=== PATIENT | male | born 1935 | race Caucasian/White ===

== ENCOUNTER 2018-09-02 14:16 | Inpatient (IN) ==
[2018-09-02] MEDS ORDERED: NS 1,000 ML IV ONE (14:46)
--- NOTE | 2018-09-02 15:10 | Diag Imaging Result Doc PS360 ---
CHEST-1 VIEW - 09/02/2018 INDICATION: SOB COMPARISON: 08/08/2018 FINDINGS: There is mild cardiomegaly. Pulmonary vascularity is normal. There is mild opacification of the left lung base likely a small pleural effusion. No significant infiltrates. IMPRESSION: Cardiomegaly. Small left basilar pleural effusion. Electronically signed by Saeid Fonseca 09/02/2018 3:08 PM
[2018-09-02 15:22] LABS: INR 1.06; PROTIME 14.7 Seconds (11.0-16.0)
[2018-09-02 15:23] LABS: BASO# 0.03 X1000 (0.0-0.2); BASO% 0.3 % (0.0-0.8); EOS# 0.05 X1000 (0.0-0.7); EOS% 0.5 % (0.0-10.0); HEMOGLOBIN 8.8 g/dL (14.0-18.0); IMM GRAN# 0.02 X1000 (0.0-0.04); IMM GRAN% 0.2 % (0.0-0.5); LYMPH% 81.1 % (20.5-51.1); MCH 33.3 PG (27-31); MCHC 31.4 g/dL (33-37); MCV 106.1 FL (81-99); MONO# 0.49 X1000 (0.11-0.59); MONO% 4.8 % (1.7-9.3); MPV 9.5 FL (7.4-10.4); NEUT# 1.32 X1000 (1.4-6.5); NEUT% 13.1 % (42.2-75.2); PLT 393 X1000 (130-400); PTT 32.5 Seconds (22.3-41.8); RBC 2.64 XMIL (4.7-6.1); WBC 10.11 X1000 (4.8-10.8)
[2018-09-02 15:36] LABS: AGAP 9; ALB/GLOB RATIO 1.2; ALBUMIN 3.6 g/dL (3.5-5.0); ALKALINE PHOSPHATASE 949 U/L (32-122); BUN 11 mg/dL (8-22); CALCIUM 8.6 mg/dL (8.8-10.2); CHLORIDE 101 mmol/L (98-107); COSMO 277; CREATININE 0.8 mg/dL (0.7-1.2); ESTIMATED GFR > 60; GLUCOSE 139 mg/dL (70-104); GOT 104 U/L (10-34); GPT 107 U/L (10-44); LIPASE 124 U/L (13-60); POTASSIUM 3.9 mmol/L (3.5-5.1); SODIUM 138 mmol/L (136-145); TCO2 28 mmol/L (25-35); TOTAL BILIRUBIN 2.61 mg/dL (0.20-1.00); TOTAL PROTEIN 6.5 g/dL (6.3-8.3)
[2018-09-02 15:43] LABS: EOS 1 % (1-10); LYMPHS 62 % (21-51); MONO 4 % (1-9); SEGS 20 % (42-75)
--- NOTE | 2018-09-02 16:13 | PROVIDER DOCUMENTATION ---
This chart was entered by Shayna Pederson Scribe, acting as scribe for Domingo Barlow MD. HPI-General Adult - General Chief Complaint: Abnormal Lab[s] Stated Complaint: LOW BLOOD COUNT Time Seen by Provider: 09/02/18 14:40 Source: patient, family Allergies/Adverse Reactions: Patient Allergies Allergy/AdvReac Type Severity Reaction Status Date / Time No Known Allergies Allergy Verified 09/02/18 15:11 Home Medications: Home Medication List Medication Instructions Recorded Confirmed Last Taken Type Carvedilol [Coreg] 3.125 mg PO BID tablet 08/09/18 09/02/18 09/02/18 Rx Folic Acid 1 mg PO DAILY tablet 08/09/18 09/02/18 09/02/18 Rx Iron Carbonyl/Ascorbic Acid 1 each PO BID tablet 08/09/18 09/02/18 09/02/18 Rx [Icar-C] Pantoprazole [Protonix] 40 mg PO BID #60 tablet 08/09/18 09/02/18 09/02/18 Rx Furosemide 20 mg PO DAILY 08/30/18 09/02/18 09/02/18 History Insulin Glargine [Basaglar] 15 units SUBQ DAILY 08/30/18 09/02/18 09/02/18 History Multivitamin with Minerals/Lut 1 tab PO DAILY 08/30/18 09/02/18 09/01/18 History [Cerovite Senior Tablet] - History of Present Illness -Gen Adult Nature of Presenting Problems: 83 yom presents to ED stating he saw Dr. Sahu this morning and he sent him over to have a blood transfusion because labs showed anemia. Patient states he had pancreatitis over a month ago and that he is scheduled for gallbladder surgery tomorrow. Patient states he is weak and SOB. Patient denies vomiting, diarrhea, fever, chills. Review of Systems - Adult - REVIEW OF SYSTEMS - ADULT Constitutional: denies: chills, fever Eyes: reports: no symptoms reported Ears, Nose, Mouth & Throat: reports: no symptoms reported Cardiovascular: reports: no symptoms reported Respiratory: reports: shortness of breath Gastrointestinal: reports: no symptoms reported Genitourinary: reports: no symptoms reported Musculoskeletal: reports: no symptoms reported Neurological: reports: no symptoms reported Psychiatric: reports: no symptoms reported Endocrine: reports: no symptoms reported Hematologic/Lymphatic: reports: no symptoms reported Allergic/Immunologic: reports: no symptoms reported All Other Systems: Reviewed and Negative Past History - Adult - PAST MEDICAL HISTORY-ADULT Review of Records: reports: Nursing Assessment Review, Medications Reviewed Major Childhood Illnesses: reports: denies history Cardiovascular: reports: HTN, hyperlipidemia Respiratory: reports: denies history Gastrointestinal: reports: denies history Obstetrical/Gynecological: reports: denies history Genitourinary: reports: denies history Musculoskeletal: reports: denies history Neurological: reports: denies history Psychiatric: reports: denies history Endocrine/Immune: reports: Diabetes Other Conditions: reports: denies history - PRIOR SURGERIES/PROCEDURES Surgical/Procedure History: reports: reviewed, not pertinent, tonsillectomy - IMMUNIZATION STATUS Childhood Immunizations: See Nurse Assessment Flu Vaccine: See Nurse Assessment - FAMILY HISTORY Family History: reviewed, not pertinent - SOCIAL HISTORY Smoking: non-smoker Physical Exam-General - PHYSICAL EXAM-ADULT Initial Vital Signs Reviewed: Yes - CONSTITUTIONAL General Appearance: alert, no apparent distress - EYES Eyes: PERRL/EOMI, pale conjunctivae - NECK Neck: non-tender, full range of motion, supple - RESPIRATORY Respiratory: chest non-tender, lungs clear, normal breath sounds, no respiratory distress. negative: crackles, rales, rhonchi - CARDIOVASCULAR Cardiovascular: normal peripheral pulses, regular rate, rhythm, no JVD, no murmur - GASTROINTESTINAL (ABDOMEN) Abdominal Exam: normal bowel sounds, non tender, soft. negative: rigid, rebound - MUSCULOSKELETAL Extremity: pedal edema - SKIN Integumentary: swelling, other (1 + bilateral pitting edema in lower extremities ) - NEUROLOGIC Neurologic: grossly normal, no motor/sensory deficits - PSYCHIATRIC Psych/Mental Status: normal mood/affect, normal thought content, oriented x 3 Progress - PLAN OF CARE/RESULTS Progress/Plan/Lab Results: Vital Signs - 8 hr 09/02/18 14:35 Temperature 97.6 F Pulse Rate 80 Respiratory Rate 17 Blood Pressure 145/62 O2 Sat by Pulse Oximetry 98 Orders Category Date Time Status CHEST-1 VIEW [RAD] Stat Exams 09/02/18 14:47 Ordered CBC WITH DIFF [HEME] Stat Lab 09/02/18 14:55 Ordered COMPREHENSIVE METABOLIC PANEL [CHEM] Stat Lab 09/02/18 14:55 Ordered LIPASE [CHEM] Stat Lab 09/02/18 14:55 Ordered PROTIME WITH INR [COAG] Stat Lab 09/02/18 14:55 Ordered PTT [COAG] Stat Lab 09/02/18 14:55 Ordered TYPE & SCREEN [BBK] Stat Lab 09/02/18 14:55 Ordered UA NIMS W/REFLEX CULT [URINALYSIS] Stat Lab 09/02/18 14:46 Uncollected 0.9% Sodium Chloride Inj [Ns] 1,000 ml Med 09/02/18 14:46 Active IV 100 mls/hr EKG [EKG] Stat Ther 09/02/18 14:47 Ordered Result Diagrams: 09/02/18 14:45 09/02/18 14:45 - XRAY 1 XRAY: Bilateral XRAY Study: Chest (MPRESSION: Cardiomegaly. Small left basilar pleural effusion. Electronically signed by Saeid Fonseca 09/02/2018 3:08 PM) Impression: Abnormal - CONSULTS/PCP/HOSPITALIST Notification #1 *Consult/PCP/Hospitalist*: talked to Dr. Samuel and he said ok to admit Time Discussed: 16:05 Consult Disposition: Admit #2 Consult: talked with Dr. Schmidt and he said ok to admit Time Discussed: 16:05 Departure - Departure Date of Disposition Decision: 09/02/18 Time of Disposition Decision: 16:06 DIAGNOSIS: Cholelithiasis, Anemia Disposition: ADMITTED INPATIENT 09 Certified Medical Emergency: Emergent Condition: Stable Referrals and Follow-Ups: Geri Sahu MD [Primary Care Provider] - - Critical Care Note This patient required my direct & personal management of CC.: No Attestation - Physician/ LEEANNE Attestation Patient care was provided by Advanced Practice Provider:: No The physician spent face to face time with patient:: Yes Advanced Practice Provider documentation review:: Supervising physician onsite and consulted in the evaluation and care of this patient. The physician did have a face to face encounter with the patient. This chart was documented by the indicated scribe, (Shayna Pederson Scribe) and accurately reflects the services I performed and decisions made by me, Domingo Barlow MD, as attested by the provider's signature.
[2018-09-02 16:18] LABS: URINE SOURCE CLEAN CATCH
[2018-09-02 16:23] LABS: BILIRUBIN URINE NEGATIVE (NEGATIVE); BLOOD URINE NEGATIVE (NEGATIVE); COLOR YELLOW; GLUCOSE URINE NEGATIVE (NEGATIVE); KETONE URINE NEGATIVE (NEGATIVE); LEUKOCYTES URINE NEGATIVE (NEGATIVE); NITRITE URINE NEGATIVE (NEGATIVE); PROTEIN URINE NEGATIVE (NEGATIVE); SP GRAVITY URINE 1.003; TURBIDITY URINE CLEAR (CLEAR); UROBILINOGEN URINE NORMAL (NORMAL)
[2018-09-02 16:24] LABS: UR EPITHELIAL CELLS <10 /HPF (<10); URINE BACTERIA NEGATIVE /HPF; URINE RBC <10 /HPF (<10); URINE WBC <10 /HPF (<10)
--- NOTE | 2018-09-02 16:55 | EKG Report ---
Test Performed on : 09/02/2018 4:47:35 PM Test Reason : ANEMIC Blood Pressure : / mmHG Vent. Rate : 077 BPM Atrial Rate : 077 BPM P-R Int : 144 ms QRS Dur : 100 ms QT Int : 402 ms P-R-T Axes : 004 -47 017 degrees QTc Int : 454 ms Sinus rhythm. with premature ventricular complexes. or fusion complexes Left anterior fascicular block Abnormal ECG When compared with ECG of 30-JUL-2018 00:24, Sinus rhythm. has replaced Atrial fibrillation. Vent. rate has decreased BY 69 BPM Criteria for Septal infarct are no longer present Non-specific change in ST segment in Lateral leads T wave inversion no longer evident in Lateral leads Unconfirmed Result
--- NOTE | 2018-09-02 17:22 | HISTORY AND PHYSICAL ---
Mr. Laboy was admitted I think back on 07/24/2018 and he was discharged on 08/09/2018. He had acute biliary pancreatitis, gallbladder sludge, acute kidney injury, pneumonia, diabetes mellitus, I think they diagnosed Helicobacter pylori and severe protein calorie malnutrition iron deficiency anemia. Had a ileus, stable pericardial effusion, little bit of volume overload, some hypertension and deconditioning. CT of the abdomen back in 07/2012 revealed acute pancreatitis, pericardial effusion, borderline splenomegaly, echocardiogram done on 07/27 revealed ejection fraction 65-70%, small medium size pericardial effusion without tamponade. Abdominal ultrasound 07/29/2018 revealed fatty infiltration the liver, bilateral lower extremity ultrasound performed on 04/30/2018 revealed no evidence of deep or superficial venous thrombosis and he had a maxillofacial CT performed on 08/01/2018 revealed left frontal sinusitis and bilateral chronic osteomyelitis, patient was here in the hospital with abdominal pain and pancreatitis, CT of the abdomen confirmed acute pancreatitis, he developed acute kidney injury. General surgery was consulted. Dr. Suárez had seen him and felt he would eventually need a cholecystectomy but need to get over his pancreatitis. Chest CT showed bilateral pleural effusions possible pneumonia and this seemed to improve, had bronchodilator therapy and broad- spectrum antibiotics and GI was consulted, the patient was noted to have H pylori and started on treatment for that and showed improvement, they put him on some Levaquin let him go home. Follow up with Dr. Sahu he was feeling kind of puny and weak and followup lab his hemoglobin was 8.8 and his hematocrit was 28. Looking back on his blood counts hemoglobin I think when he was discharged was 7.3 and 08/23 is 6.6. He is not having more abdominal pain, his abdomen feels better, he is not eating much, not had any fever so I am going to admit him to give him a transfusion I think 2 units packed red blood cells and get him ready for possible cholecystectomy. PAST MEDICAL HISTORY: Includes prostate cancer, diabetes mellitus type 2 which apparently he has been able to back down on his medication, hyperlipidemia, hypertension, depression. SURGICAL HISTORY: Status post tonsillectomy, he has had open prostatectomy. ALLERGIES: No known drug allergies. SOCIAL HISTORY: Negative for tobacco, alcohol or illicit drugs. FAMILY HISTORY: No history that he reports of coronary artery disease or renal disease. REVIEW OF SYSTEMS: General: He is not eating much, thinks he has lost weight not sure how much but he can only eat a couple bites and he seems to get full, no fever, chills. HEENT: No change in visual or hearing acuity. No neck pain or cervical adenopathy or thyroid issues. Respiratory: No increased work of breathing or dyspnea. Cardiovascular: No chest pain or tachy palpitation. GI,: Abdominal pain has subsided and he is able to eat and his bowels have been moving okay. No gross hematuria, dysuria. Endocrinologic/Hematologic: No significant history. PHYSICAL EXAMINATION: Well developed, well nourished white male pleasant and alert, oriented x3. Temperature 97.6 degrees, pulse 80, respirations 17, blood pressure 145/62. Pupils are equal and round. LUNGS: Clear in all lung chang. CARDIOVASCULAR: Regular rhythm and rate without murmur or S3. ABDOMEN: Seems to have some minimal ascites but really nontender. EXTREMITIES: With trace to 1+ edema ankles to mid rose. Weight 185 pounds, O2 saturation was 98%. LAB: White count 10,110, hematocrit 28, hemoglobin 8.8, platelet count 393,000, sodium 138, potassium 3.9, chloride 101, BUN 9, creatinine 0.8. AST was 104, ALT was 107, alkaline phos 949, lipase 124, pro time 14.7 with INR 1.06, PTT was 22. Urinalysis unremarkable. Chest x-ray showed cardiomegaly, small left basilar pleural effusion. ASSESSMENT AND PLAN: 1. Recent acute pancreatitis which seems to have recovered, suspect gallbladder with gallbladder sludge and will need a cholecystectomy. His blood counts still a little low although they have improved. I am going to give him 2 units of packed red blood cells. General Surgery following trying to preparation to do elective cholecystectomy. 2. Liver enzymes still elevated. This may be fatty liver. This may also be the residual affects of the gallbladder sludge. I will make sure we check a pancreatitis profile, will check T4, TSH, B12 and folate. 3. Suspect some fatty liver steatosis. 4. Diabetes mellitus type 2. Will check pattern sugars, put him on a diabetic diet. His blood sugar is 139, will check a hemoglobin A1c. 5. Has a history of a prostate cancer, aware. 6. Hyperlipidemia aware. 7. History of depression. Note he is status post open prostatectomy. Will consult general surgery. His volume status looks pretty good. Give him 2 units packed red blood cells and go from there. cc: Angel Pruett MD
[2018-09-02] MEDS ORDERED: ZOFRAN IV PRN (18:10)
[2018-09-02] MEDS ORDERED: TYLENOL PO PRN (18:10)
[2018-09-02] MEDS: NS 1,000 ML IV SCH (18:10)
[2018-09-02] MEDS: COREG PO SCH ×2 (19:35→20:57)
[2018-09-02] MEDS: PROTONIX PO SCH ×2 (19:36→20:58)
[2018-09-02] MEDS: ICAR-C PO SCH ×2 (19:36→20:57)
--- NOTE | 2018-09-03 07:00 | EKG Report ---
Test Performed on : 09/03/2018 06:44:01 AM Test Reason : chest pain Blood Pressure : / mmHG Vent. Rate : 082 BPM Atrial Rate : 082 BPM P-R Int : 140 ms QRS Dur : 106 ms QT Int : 392 ms P-R-T Axes : 017 -58 056 degrees QTc Int : 457 ms Normal sinus rhythm. Left anterior fascicular block Abnormal ECG When compared with ECG of 02-SEP-2018 16:47, (Unconfirmed) fusion complexes are no longer present premature ventricular complexes. are no longer present Confirmed by Giovanna TILLEY, Maxx Mc ([id number]) on 09/03/2018 5:55:54 PM
[2018-09-03 08:11] LABS: BASO# 0.02 X1000 (0.0-0.2); BASO% 0.2 % (0.0-0.8); EOS# 0.07 X1000 (0.0-0.7); EOS% 0.8 % (0.0-10.0); HEMATOCRIT 30.3 % (42.0-52.0); HEMOGLOBIN 9.6 g/dL (14.0-18.0); LYMPH# 6.63 X1000 (1.2-3.4); LYMPH% 78.8 % (20.5-51.1); MCH 31.4 PG (27-31); MCHC 31.7 g/dL (33-37); MONO# 0.43 X1000 (0.11-0.59); MONO% 5.1 % (1.7-9.3); MPV 9.6 FL (7.4-10.4); NEUT# 1.26 X1000 (1.4-6.5); NEUT% 15.1 % (42.2-75.2); PLT 348 X1000 (130-400); RBC 3.06 XMIL (4.7-6.1); WBC 8.41 X1000 (4.8-10.8)
[2018-09-03 08:25] LABS: INR 1.05; PROTIME 14.5 Seconds (11.0-16.0)
[2018-09-03 08:26] LABS: PTT 33.8 Seconds (22.3-41.8)
[2018-09-03 08:35] LABS: AGAP 9; ALBUMIN 2.8 g/dL (3.5-5.0); ALKALINE PHOSPHATASE 813 U/L (32-122); BUN 10 mg/dL (8-22); CHLORIDE 103 mmol/L (98-107); CK PROFILE 31 U/L (24-204); COSMO 280; CREATININE 0.8 mg/dL (0.7-1.2); ESTIMATED GFR > 60; GLUCOSE 122 mg/dL (70-104); GOT 104 U/L (10-34); GPT 102 U/L (10-44); MAGNESIUM 1.6 mg/dL (1.5-2.7); POTASSIUM 3.9 mmol/L (3.5-5.1); SODIUM 140 mmol/L (136-145); TCO2 28 mmol/L (25-35); TOTAL BILIRUBIN 3.25 mg/dL (0.20-1.00); TOTAL PROTEIN 5.5 g/dL (6.3-8.3)
[2018-09-03 08:39] LABS: MONO 14 % (1-9); SEGS 26 % (42-75)
[2018-09-03 08:40] LABS: LYMPHS 58 % (21-51)
--- NOTE | 2018-09-03 09:40 | GENERAL SURGERY PROGRESS NOTE ---
DATE: 09/03/2018 SUBJECTIVE: The patient was admitted yesterday after his primary care physician thought he looked weak and lab work showed anemia. He denies any significant worsening abdominal pain, nausea, vomiting or fever. OBJECTIVE: Vital Signs: He is afebrile. Vital signs are stable. General: He is awake, alert and oriented x3 in no acute distress. GI: Soft, nondistended, minimally tender. Cardiovascular: Regular rate and rhythm. Respiratory: Bilateral equal breath sounds. LABORATORY DATA: Lab work was reviewed. Hemoglobin and hematocrit appear stable over the last month from his previous admission until now. His liver function tests have elevated some. ASSESSMENT AND PLAN: This is an 83-year-old male with chronic calculous cholecystitis and history of biliary pancreatitis. He is anemic but appears to be hemodynamically stable. We are planning a laparoscopic cholecystectomy today as previously planned last week. cc: Malcolm Suárez MD
[2018-09-03] MEDS ORDERED: DIPRIVAN 1% ONE (11:51)
[2018-09-03] MEDS ORDERED: FENTANYL ONE (11:51)
[2018-09-03] MEDS ORDERED: SODIUM CHLORIDE 0.9% ONE (12:35)
[2018-09-03] MEDS ORDERED: SENSORCAINE-MPF 0.5%/EPI 1:200,000 ONE (12:35)
[2018-09-03] MEDS ORDERED: LR 1,000 ML ONE (12:36)
[2018-09-03] MEDS ORDERED: NORCURON ONE (12:46)
[2018-09-03] MEDS ORDERED: STERILE WATER INJ. ONE (12:46)
[2018-09-03] MEDS ORDERED: KEFZOL 1 GM/D5W 1 GM/50 ML IVPB IV ONE (13:00)
[2018-09-03] MEDS ORDERED: DECADRON ONE (13:48)
[2018-09-03] MEDS ORDERED: ZOFRAN ONE (13:48)
--- NOTE | 2018-09-03 14:43 | Diag Imaging Result Doc PS360 ---
EXAM: OPERATIVE CHOLANGIOGRAM 09/03/2018 HISTORY: CHOLECYSTECTOMY TECHNIQUE: Intraoperative cholangiogram two views COMMENT: There is beading of the common hepatic duct in the visible portions of the intrahepatic ducts. There is a fairly smooth narrowing of the proximal common bile duct just below the level of the cystic duct. No definite filling defects are demonstrated. IMPRESSION: Apparent extrinsic compression of the common bile duct. Dilatation of the common hepatic and intrahepatic ducts. Electronically signed by Ronald Beltran 09/03/2018 2:40 PM
[2018-09-03] MEDS ORDERED: BUPRENEX IV PRN (14:55)
--- NOTE | 2018-09-03 15:19 | PROGRESS NOTE ---
DATE: 09/03/2018 SUBJECTIVE: The patient is resting comfortably in bed. He is scheduled to undergo surgery today. No acute events noted overnight. OBJECTIVE: Vital Signs: Temperature 97.3, blood pressure 168/74, heart rate 81 , respirations 18, O2 saturation 94% on room air. General: This is a chronically ill-appearing elderly male lying in bed in no acute distress. Heart: S1, S2 normal. Regular rate and rhythm. Lungs clear to auscultation bilaterally. No wheezing. No rales. No rhonchi. Abdomen: Positive bowel sounds. Soft, nontender, nondistended. Extremities: 1+ edema. No cyanosis. No calf tenderness. Neurologic: The patient is alert and oriented x3. LABORATORY DATA: White blood cell count 8.4, hemoglobin 9.6, hematocrit 30, platelets 348,000. INR 1. Sodium 140, potassium 3.9, chloride 103, CO2 of 28. BUN 10, creatinine 0.8, glucose 122. Magnesium 1.6. Total bilirubin 3.2. AST 104, ALT 102. Alkaline phosphatase 813. ASSESSMENT AND PLAN: 1. Biliary sludge with chronic cholecystitis. The patient is scheduled for a laparoscopic cholecystectomy today. 2. Hypertension. Stable. 3. Iron deficiency anemia. Continue with iron supplementation. 4. Diabetes mellitus, type 2. Stable. Will continue with sliding scale insulin. 5. Gastrointestinal prophylaxis. Continue on Protonix. 6. Deep vein thrombosis prophylaxis. Continue with sequential compression devices. cc: Chaparrita Howe MD MTDD
[2018-09-03] MEDS: BASAGLAR SUBQ SCH (17:21)
[2018-09-03] MEDS: HUMULIN R SUBQ SCH ×2 (17:22→20:24)
[2018-09-03] MEDS: PROTONIX PO SCH ×2 (17:22→20:24)
[2018-09-03] MEDS: FOLIC ACID PO SCH (17:23)
[2018-09-03] MEDS: ICAR-C PO SCH ×2 (17:23→20:24)
[2018-09-03] MEDS: CENTRUM SILVER PO SCH (17:24)
[2018-09-03] MEDS: COREG PO SCH ×2 (17:24→20:24)
[2018-09-03] MEDS: NS 1,000 ML IV SCH (20:24)
[2018-09-04] MEDS: NORCO-7.5 PO PRN ×3 (02:58→21:11)
--- NOTE | 2018-09-04 03:12 | OPERATIVE NOTE ---
PROCEDURE DATE: 09/03/2018 PREOPERATIVE DIAGNOSES: 1. Chronic calculous cholecystitis. 2. Biliary pancreatitis. POSTOPERATIVE DIAGNOSIS: Acute cholecystitis. SURGEON: Malcolm Suárez MD. ANESTHESIA: General. ESTIMATED BLOOD LOSS: 20 mL. COMPLICATIONS: None apparent. SPECIMENS: Gallbladder. FINDINGS: The gallbladder was acutely inflamed, thin walled and friable. The cholangiogram revealed a normal-appearing cystic duct and distal common bile duct with flow of contrast into the duodenum. There were no filling defects or stenoses. However, the proximal common hepatic duct and intrahepatic biliary radicles were dilated. I do not think there was any intraluminal lesion, but probably some extraluminal compression secondary to his history of pancreatitis. DESCRIPTION OF PROCEDURE: He was brought to the operating room and placed supine on the table. General anesthesia was induced. He was prepped and draped in the usual sterile fashion. 0.25% Marcaine with epinephrine was used to anesthetize our incision. An 11-mm incision was made above the umbilicus. The fascia was exposed and incised sharply. Entry into the peritoneal cavity was obtained under direct vision with the Optiview device. Pneumoperitoneum was established and the camera was inserted. There was no evidence of injury to underlying structures. He was placed in reverse Trendelenburg in left rotation. Three 5-mm incision ports were placed across the epigastrium and right upper quadrant per usual routine. The dome of the gallbladder was grasped by the assistant federal public defender with a bulldog clamp, it did tear some, I was able to suction out dark bile with sludge-like material in it. I then obtained an angled camera and a fan instrument, the fan instrument was inserted through a new port site created in the right mid abdomen , this was helpful for holding down the pericolic and periduodenal fat and exposing more of the infundibulum of the gallbladder. I was able to use Kittner dissection and the blunt tip of the suction device to continued sweeping the fatty tissue away from the gallbladder. I dissected out the cystic artery as it entered the gallbladder, clipped it proximally and distally and incised it with scissors. I then was able to get around the posterior part of the infundibulum of the gallbladder and then clearly delineated the cystic duct. The gallbladder liver junction was seen, this completed the critical view. A clip was placed on the distal cystic duct. A ductotomy was made proximal to this incision. A 14-gauge Angiocath was passed through the right upper quadrant. The Taut cholangiogram catheter was passed through this into the cystic duct and held in place with a clip. Cholangiogram was performed with findings as noted above. The clip, catheter, and Angiocath were removed. Three clips were placed on the staying-in side of the cystic duct and it was divided distal to these incisions. The gallbladder was then removed from the liver bed using hook cautery obtaining hemostasis along the way. At the conclusion there was no signs of any leakage of bile or bleeding. I placed the gallbladder in an EndoCatch bag. I irrigated thoroughly with saline, suctioned out the old bile and blood. I then brought the gallbladder and bag out through the umbilical port site under direct vision. We deflated the abdomen and removed the ports. The 11- mm port site fascia was closed with a 0 Vicryl [id number] suture. The skin was closed with running 4-0 subcuticular Monocryl and Steri-Strips. There were no apparent complications. He was awakened in stable condition and transferred to the recovery room. cc: Malcolm Suárez MD MTDD
[2018-09-04] MEDS: HUMULIN R SUBQ SCH ×4 (06:28→21:02)
[2018-09-04 08:41] LABS: AGAP 9; ALB/GLOB RATIO 1.2; ALBUMIN 2.6 g/dL (3.5-5.0); ALKALINE PHOSPHATASE 689 U/L (32-122); BUN 12 mg/dL (8-22); CALCIUM 7.6 mg/dL (8.8-10.2); CHLORIDE 101 mmol/L (98-107); COSMO 275; CREATININE 0.8 mg/dL (0.7-1.2); ESTIMATED GFR > 60; GLUCOSE 99 mg/dL (70-104); GOT 85 U/L (10-34); GPT 92 U/L (10-44); POTASSIUM 4.1 mmol/L (3.5-5.1); SODIUM 138 mmol/L (136-145); TCO2 28 mmol/L (25-35); TOTAL BILIRUBIN 1.84 mg/dL (0.20-1.00); TOTAL PROTEIN 4.7 g/dL (6.3-8.3)
--- NOTE | 2018-09-04 09:01 | Diag Imaging Result Doc PS360 ---
EXAM: CHEST-PORTABLE HISTORY: dyspnea TECHNIQUE: Chest single view COMPARISON: 09/02/2017 FINDINGS: Poor inspiratory effort. Small pleural effusions persist. There are infiltrates and atelectasis in the left base. The heart remains mildly prominent. IMPRESSION: No interval improvement. Electronically signed by Bernabe Stewart 09/04/2018 8:59 AM
[2018-09-04] MEDS: LASIX PO SCH (09:09)
[2018-09-04] MEDS: CENTRUM SILVER PO SCH (09:10)
[2018-09-04] MEDS: ICAR-C PO SCH ×2 (09:10→21:01)
[2018-09-04] MEDS: PROTONIX PO SCH ×2 (09:10→21:01)
[2018-09-04] MEDS: FOLIC ACID PO SCH (09:10)
[2018-09-04] MEDS: COREG PO SCH ×2 (09:11→21:01)
[2018-09-04 10:27] LABS: HEMATOCRIT 29.7 % (42.0-52.0); HEMOGLOBIN 9.2 g/dL (14.0-18.0); MCH 31.3 PG (27-31); MPV 10.3 FL (7.4-10.4); RBC 2.94 XMIL (4.7-6.1); RDW 22.9 % (11.5-14.5); WBC 10.05 X1000 (4.8-10.8)
[2018-09-04] MEDS ORDERED: MAGNESIUM SULFATE 2 GM/S.W.I. 2 GM/50 ML IVPB IV ONE (12:28)
[2018-09-04] MEDS: BASAGLAR SUBQ SCH (15:07)
[2018-09-04] MEDS: GLUCOPHAGE PO SCH (18:13)
[2018-09-04] MEDS: NS 1,000 ML IV SCH (18:14)
--- NOTE | 2018-09-05 04:16 | PROGRESS NOTE ---
DATE: 09/04/2018 SUBJECTIVE: The patient is sitting up, eating. He states that he feels a lot better. No acute events noted overnight. OBJECTIVE: Vital Signs: Temperature 97.3 degrees, blood pressure 127/47, heart rate 78, respirations 20, O2 saturation 95% on room air. General: This is an elderly male sitting up in a chair, in no acute distress. Heart: S1, S2 normal. Regular rate and rhythm. Lungs: Clear to auscultation bilaterally. No wheezing. No rales. No rhonchi. Abdomen: Positive bowel sounds. Soft, nontender, nondistended. Extremities: No edema. No cyanosis. Neurologic: The patient is alert and oriented x3. LABORATORIES: White blood cell count 10, hemoglobin 9.2, hematocrit 29, platelets 340,000. Sodium 138, potassium 4.1, chloride 101, CO2 of 28, BUN 12, creatinine 0.8, glucose 179, calcium 7.6, magnesium 1.5. AST 85, ALT 92, alkaline phosphatase 689. ASSESSMENT AND PLAN: 1. Status post laparoscopic cholecystectomy secondary to acute cholecystitis. The patient is doing well. He has tolerated a liquid diet without any difficulty. Further recommendations to follow from the general surgeon. 2. Diabetes mellitus type 2. Stable. We will restart the patient's metformin. 3. Iron deficiency anemia. Continue with iron supplementation. 4. Hypertension. Continue on Coreg. 5. Deep vein thrombosis prophylaxis. Continue with SCDs. 6. Disposition: Continue with physical therapy. The patient can be discharged home once cleared by the general surgeon. cc: Chaparrita Howe MD MTDD
--- NOTE | 2018-09-05 05:24 | GENERAL SURGERY PROGRESS NOTE ---
DATE: 09/04/2018 SUBJECTIVE: The patient is doing okay today. He has been out of bed. He is eating some food. No nausea or vomiting. His pain is improving. OBJECTIVE: Vital signs: He is afebrile. Vital signs are stable. General: He is awake, alert, and oriented x3. No acute distress. GI: Soft, nondistended, minimally tender. Incisions are healing. The right lateral incision does have serosanguineous drainage. LABORATORY: Reviewed and notable for decreased total bilirubin down to 1.8. AST and ALT decreased. Alkaline phosphatase also decreased. ASSESSMENT/PLAN: An 83-year-old male status post laparoscopic cholecystectomy yesterday for acute cholecystitis. He is making improvement. I would anticipate discharge tomorrow. cc: Malcolm Suárez MD
[2018-09-05] MEDS: HUMULIN R SUBQ SCH ×4 (06:38→20:07)
[2018-09-05 07:58] LABS: HEMATOCRIT 34.3 % (42.0-52.0); HEMOGLOBIN 10.7 g/dL (14.0-18.0); MCH 31.4 PG (27-31); MCHC 31.2 g/dL (33-37); MCV 100.6 FL (81-99); MPV 9.1 FL (7.4-10.4); RBC 3.41 XMIL (4.7-6.1); RDW 22.7 % (11.5-14.5); WBC 10.9 X1000 (4.8-10.8)
[2018-09-05 08:09] LABS: AGAP 9; ALB/GLOB RATIO 1.2; ALBUMIN 2.7 g/dL (3.5-5.0); ALKALINE PHOSPHATASE 798 U/L (32-122); BUN 12 mg/dL (8-22); CALCIUM 7.4 mg/dL (8.8-10.2); CHLORIDE 98 mmol/L (98-107); COSMO 274; CREATININE 0.9 mg/dL (0.7-1.2); ESTIMATED GFR > 60; GLUCOSE 108 mg/dL (70-104); GOT 120 U/L (10-34); GPT 115 U/L (10-44); POTASSIUM 4.2 mmol/L (3.5-5.1); SODIUM 137 mmol/L (136-145); TCO2 30 mmol/L (25-35); TOTAL BILIRUBIN 2.97 mg/dL (0.20-1.00)
[2018-09-05] MEDS: CENTRUM SILVER PO SCH (08:34)
[2018-09-05] MEDS: LASIX PO SCH (08:34)
[2018-09-05] MEDS: FOLIC ACID PO SCH (08:34)
[2018-09-05] MEDS: ICAR-C PO SCH ×2 (08:34→20:06)
[2018-09-05] MEDS: PROTONIX PO SCH ×2 (08:34→20:06)
[2018-09-05] MEDS: GLUCOPHAGE PO SCH ×2 (08:34→17:12)
[2018-09-05] MEDS: COREG PO SCH ×2 (08:34→20:06)
[2018-09-05] MEDS ORDERED: INSULIN PEN NEEDLES ONE (08:35)
[2018-09-05] MEDS: BASAGLAR SUBQ SCH (08:35)
[2018-09-05] MEDS: NORCO-7.5 PO PRN ×3 (08:40→20:06)
--- NOTE | 2018-09-05 09:36 | Diag Imaging Result Doc PS360 ---
EXAM: CHEST-2 VIEWS 09/05/2018 HISTORY: pneumonia TECHNIQUE: PA and lateral chest COMMENT: There is a left pleural effusion. There is opacification the retrocardiac left lower lobe. There has been some improvement in the hazy opacities in both lower lung chang since 09/04/2018. IMPRESSION: Improved pulmonary edema. Left lower lobe atelectasis versus pneumonia with pleural effusion. Electronically signed by Ronald Beltran 09/05/2018 9:34 AM
--- NOTE | 2018-09-05 10:20 | Diag Imaging Result Doc PS360 ---
EXAM: US ABDOMEN-COMPLETE 09/05/2018 HISTORY: elevated liver function tests TECHNIQUE: Abdominal ultrasound COMMENT: There is a right pleural effusion. The liver is somewhat poorly demonstrated. There is heterogeneous in echotexture. There is antegrade flow in the portal vein. There is some hyperechogenicity in the gallbladder fossa. The patient has recently undergone cholecystectomy and this may be due to a post operative hematoma. There is no evidence of biliary dilatation the common bile duct measuring 4 mm. The spleen is not enlarged. The kidneys are without evidence of hydronephrosis or mass. There is a small left pleural effusion. Compared to the previous study of 07/29/2018 the postsurgical changes were not present previously. IMPRESSION: Bilateral pleural effusions. Postoperative changes in the gallbladder fossa. Hepatic steatosis. Electronically signed by Ronlad Beltran 09/05/2018 10:17 AM
--- NOTE | 2018-09-05 21:11 | PROGRESS NOTE ---
DATE: 09/05/2018 SUBJECTIVE: The patient is resting comfortably. He has no complaints at this time. OBJECTIVE: Vital Signs: Temperature 97.4, blood pressure 180/78, heart rate 90, respirations 18, O2 sats 95% on room air. General: This is a chronically ill-appearing elderly male sitting in a chair in no acute distress. Heart: S1, S2 normal. Regular rate and rhythm. Lungs: Equal air entry bilaterally. No crackles. No rales. Abdomen: Positive bowel sounds. Soft, nontender, nondistended. Extremities: No edema, no cyanosis. Neurologic: The patient is alert and oriented x 3. LABS: White blood cell count 10, hemoglobin 10, hematocrit 34, platelets 323,000. Sodium 137, potassium 4.2, BUN 12, creatinine 0.9, glucose 108, total bilirubin 2.9, AST 120, ALT 115, alkaline phosphatase 798. ASSESSMENT AND PLAN: 1. Status post laparoscopic cholecystectomy secondary to acute cholecystitis. The patient's LFTs are elevated today. We will consult with GI for further recommendations. The abdominal ultrasound is unremarkable. 2. Diabetes mellitus type 2. Stable. Continue on metformin. 3. Hypertension. Continue on Coreg. 4. Iron deficiency anemia. Continue on iron supplementation. 5. DVT prophylaxis. Continue with SCDs. cc: Chaparrita Howe MD
--- NOTE | 2018-09-06 02:53 | CONSULTATION ---
DATE OF CONSULTATION: 09/05/2018 REFERRING PROVIDER: Chaparrita Howe M.D. PRIMARY CARE PROVIDER: Geri Sahu M.D. PRIMARY SURGEON: Malcolm Suárez M.D. INDICATION FOR CONSULTATION: Elevated liver function tests. HISTORY OF PRESENT ILLNESS: The patient is an 83-year-old white male who was seen last admission. At that time, he was admitted with biliary pancreatitis secondary to gallbladder sludge, acute kidney injury, pneumonia, and poorly controlled diabetes mellitus. He was found to have anemia and nausea with vomiting. Because of his anemia and epigastric pain at the time of admission, a stool antigen was obtained for H. pylori. It was found to be positive. He completed treatment. He was clinically managed with non-endoscopic intervention. He improved clinically and was discharged to home after being admitted from 07/24/2018 to 08/09/2018. He was managed as an outpatient. On 09/02/2018, he was electively admitted for a cholecystectomy. He underwent a successful cholecystectomy on 09/03/2018. His postop course has been remarkable for an enterocutaneous fistula and elevated liver function tests. Because of his elevated liver function tests, I recommended an abdominal ultrasound which was obtained today. It is remarkable for bilateral pleural effusions, fatty liver, and postoperative changes in the gallbladder fossa. There was no evidence of obstruction or biliary ductal dilation. Currently, the patient states that he feels better since surgery. He denies nausea, vomiting, abdominal pain. 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 He reports minimal incisional abdominal pain. We are asked to participate in his care due to the elevated liver function tests. PAST MEDICAL HISTORY: Remarkable for: 1. Prostate cancer. 2. Diabetes mellitus. 3. Hyperlipidemia. 4. Hypertension. 5. Depression. 6. Acute kidney injury. 7. Pneumonia. 8. Obesity. 9. H. pylori infection. 10. Severe protein-calorie malnutrition. 11. Iron deficiency anemia. 12. Pericardial effusion. 13. Splenomegaly. 14. Fatty liver. 15. Sinusitis, left frontal sinus. 16. Chronic osteomyelitis. PAST SURGICAL HISTORY: 1. Tonsillectomy. 2. Prostatectomy. MEDICATION ALLERGIES: None. HOME MEDICATIONS: 1. Coreg. 2. Folic acid. 3. Lasix. 4. Icar-C. 5. Glucophage. 6. Cerovite. 7. Protonix. SOCIAL HISTORY: Negative for alcohol, tobacco, or recreational drug use. He is a recent . He has a supportive family. FAMILY HISTORY: Negative for coronary artery disease, renal disease, and colon cancer. 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 In addition, he reports the expected postoperative abdominal pain. He denies nausea, vomiting , fever, or chills. PHYSICAL EXAMINATION: Vital Signs: His blood pressure is 180/78, respiratory rate of 26, pulse of 90, with a temperature of 97.4 degrees. HEENT: Negative for jaundice. Oropharyngeal mucosal membranes are moist. Pulmonary exam: His lungs are clear to auscultation with normal respiratory effort. Cardiovascular exam: Reveals a regular rate and rhythm with no gallops or rubs. Abdomen: Soft and nondistended. There is minimal incisional tenderness. He has an ostomy bag over his right lateral incision site that is actively draining serosanguineous fluid. Extremities: Negative for cyanosis, clubbing, or edema. Neurologic: He is alert and oriented x3 with the appropriate mood, affect, and memory. OBJECTIVE DATA: Reveals a hemoglobin of 10.7 with hematocrit of 34.3 and a white count of 10.90. He has 323,000 platelets. Sodium is 134, potassium 4.2, chloride 98, CO2 of 30, BUN 12, creatinine 0.9, with a glucose of 108. Calcium is 7.4. Total bilirubin is 2.97 , direct bilirubin is 2.10, AST 120, ALT 115, alkaline phosphatase 798, total protein 5.0, and albumin of 2.7. His abdominal ultrasound shows bilateral pleural effusions, expected postoperative changes in the gallbladder fossa, no evidence of biliary dilation of the common bile duct, normal kidneys, small pleural effusion, and fatty liver. IMPRESSION: 1. Elevated liver function tests. 2. Acute cholecystitis, status post cholecystectomy. 3. Fatty liver. 4. Recent pancreatitis. 5. Iron deficiency anemia, improved. 6. Helicobacter pylori, status post treatment. RECOMMENDATION: 1. Given that the patient had recent surgery and is minimally symptomatic, I recommend clinical monitoring of his liver function tests. I anticipate it is related to medication and should improve. However, if his liver function tests continue to rise, we can consider a more formal evaluation, including hepatitis profile. 2. For overall evaluation, I will check a hepatitis profile and an DENNIS. He historically has had a negative DENNIS. Given that he has fatty liver, it is reasonable to pursue evaluation with these tests. 3. The patient has had recurrent anemia. He may benefit from an EGD as an outpatient, given that he has required a blood transfusion this admission and has had nausea with vomiting as well as epigastric pain in the past. I recommend that we will allow time for him to recover from his surgery in the absence of active bleeding. 4. Additional recommendations to follow based on his clinical course. cc: MD Chaparrita Basurto MD Marlin D. Gill, MD Jason R. Seale, MD [facility] HOSPITALBrandy
[2018-09-06] MEDS: HUMULIN R SUBQ SCH ×4 (05:59→20:21)
[2018-09-06] MEDS: PROTONIX PO SCH ×2 (08:26→20:14)
[2018-09-06] MEDS: GLUCOPHAGE PO SCH ×2 (08:26→17:08)
[2018-09-06] MEDS: CENTRUM SILVER PO SCH (08:26)
[2018-09-06] MEDS: FOLIC ACID PO SCH (08:26)
[2018-09-06] MEDS: COREG PO SCH ×2 (08:26→20:14)
[2018-09-06] MEDS: ICAR-C PO SCH ×2 (08:26→20:14)
[2018-09-06] MEDS: LASIX PO SCH (08:27)
[2018-09-06] MEDS: NORCO-7.5 PO PRN ×2 (08:27→20:18)
[2018-09-06] MEDS: BASAGLAR SUBQ SCH (08:27)
[2018-09-06 08:29] LABS: HEMATOCRIT 33.2 % (42.0-52.0); HEMOGLOBIN 10.6 g/dL (14.0-18.0); MCH 31.5 PG (27-31); MCHC 31.9 g/dL (33-37); MCV 98.8 FL (81-99); MPV 10.1 FL (7.4-10.4); RBC 3.36 XMIL (4.7-6.1); RDW 21.8 % (11.5-14.5); WBC 14.89 X1000 (4.8-10.8)
[2018-09-06 08:42] LABS: AGAP 11; ALB/GLOB RATIO 1.1; ALBUMIN 2.6 g/dL (3.5-5.0); ALKALINE PHOSPHATASE 670 U/L (32-122); BUN 12 mg/dL (8-22); CALCIUM 7.5 mg/dL (8.8-10.2); CHLORIDE 96 mmol/L (98-107); COSMO 269; CREATININE 0.7 mg/dL (0.7-1.2); ESTIMATED GFR > 60; GLUCOSE 117 mg/dL (70-104); GOT 71 U/L (10-34); GPT 92 U/L (10-44); POTASSIUM 3.6 mmol/L (3.5-5.1); SODIUM 134 mmol/L (136-145); TCO2 27 mmol/L (25-35); TOTAL BILIRUBIN 2.55 mg/dL (0.20-1.00); TOTAL PROTEIN 4.9 g/dL (6.3-8.3)
--- NOTE | 2018-09-06 13:53 | GENERAL SURGERY PROGRESS NOTE ---
DATE: 09/06/2018 SUBJECTIVE: The patient is doing okay. No significant pain. No nausea or vomiting. OBJECTIVE: He is afebrile, pulse 99 to 103, respiratory rate 19 to 25, blood pressure 178/80, O2 saturation 94%.General: He is an elderly male in no distress who looks his stated age. CV: Regular rate and rhythm. Respiratory: No work of breathing. GI: Soft, nontender, nondistended. Incision is clean, dry, and intact. Good bowel sounds. LABORATORY: White cell count 14.9, hemoglobin 10.6, hematocrit 33. Electrolytes reviewed and notable for total bilirubin 2.5, AST 71, ALT 92, alkaline phosphatase 670. IMAGING: Abdominal ultrasound yesterday shows some heterogeneous fluid in the gallbladder fossa, likely consistent with a small hematoma. He has bilateral pleural effusions and hepatic steatosis. ASSESSMENT AND PLAN: An 83-year-old male status post laparoscopic cholecystectomy. He is generally improving. His liver function tests have improved symptomatically. He has minimal symptoms. I would recommend continued advancement of diet and ambulation as tolerated. He can be discharged home at this point from my standpoint. cc: Malcolm Suárez MD
--- NOTE | 2018-09-06 16:43 | Diag Imaging Result Doc PS360 ---
EXAM: CHEST-2 VIEWS HISTORY: pneumonia TECHNIQUE: Chest two views COMPARISON: 09/05/2018 FINDINGS: Small left pleural effusion with infiltrates and atelectasis in the left lower lobe remain. No significant change. Mild cardiac prominence. No vascular distention. IMPRESSION: No interval improvement. Electronically signed by Bernabe Stewart 09/06/2018 4:41 PM
[2018-09-06] MEDS: ZYVOX 600 MG/D5W 600 MG/300 ML IVPB IV SCH (18:32)
[2018-09-06] MEDS: MAXIPIME 1 GM in NS 50 ML IV SCH (18:32)
--- NOTE | 2018-09-06 18:42 | PROGRESS NOTE ---
DATE: 09/06/2018 SUBJECTIVE: The patient is resting comfortably in bed. No acute events noted overnight. OBJECTIVE: Vital Signs: Temperature 97.9 degrees, blood pressure 120/50, heart rate 91, respirations 18, and O2 saturations 95% on room air. General: This is an elderly male, sitting at the edge of the bed in no acute distress. Heart: S1, S2 normal. Regular rate and rhythm. Lungs: Equal air entry bilaterally. No crackles. No rales. Abdomen: Positive bowel sounds. Soft, nontender, nondistended. Extremities: No edema no cyanosis. Neurologic: The patient is alert and oriented x3. LABORATORY DATA: White blood cell count 14, hemoglobin 10, hematocrit 33, platelets 323,000. Sodium 134, potassium 3.6, chloride 96, CO2 of 27, BUN 12, creatinine 0.7, glucose 117, calcium 7.5, total bilirubin 2.5, AST 71, ALT 92, alkaline phosphatase 670, albumin 2.6. Chest x-ray shows a small left pleural effusion with infiltrates and atelectasis in the left lower lung. ASSESSMENT AND PLAN: 1. Status post laparoscopic cholecystectomy. Management as per the general surgeon. 2. Possible pneumonia. The patient's white blood cell count has increased to 14,000, and the chest x-ray is showing infiltrates in the left lower lobe. We will order blood cultures and a sputum Gram stain and culture. We will also start the patient on broad-spectrum antibiotics. 3. Diabetes mellitus type 2. Continue on metformin. 4. Hypertension. Continue on Coreg. 5. Iron deficiency anemia. Continue on iron supplementation. 6. Elevated liver function tests. Slowly improving. Gastrointestinal is following. 7. Deep vein thrombosis prophylaxis will start the patient on Lovenox. cc: Chaparrita Howe MD
[2018-09-06] MEDS: LOVENOX SUBQ SCH (20:14)
--- NOTE | 2018-09-06 20:30 | PROGRESS NOTE ---
DATE: 09/06/2018 SUBJECTIVE: The patient is resting comfortably in bed. He denies complaints. He is worried about his drainage from his right enterocutaneous fistula at the site of his port on the right lateral abdomen. His appetite remains poor according to his daughter. However, the patient states that he does not like the way the food is seasoned here. Notably, the patient's white count has increased to 14,000. His chest x-ray shows an infiltrate in the left lower lobe. He has been placed on broad-spectrum antibiotics for possible pneumonia. PHYSICAL EXAM: Vital Signs: His blood pressure is 120/50, pulse of 91, respiration 19 to 25 with a temperature of 97.9 degrees. Abdomen: Soft. He continues to have serosanguineous drainage from the right abdominal port site. OBJECTIVE DATA: Reveals a hemoglobin of 10.6 with hematocrit of 33.2 and a white count of 14.89. He has 323,000 platelets. Sodium is 134, potassium 3.6, chloride 96, CO2 27, BUN 12, creatinine 0.7 with a glucose of 117. Calcium 7.5, total bilirubin 2.55, AST 71, ALT 92, alkaline phosphatase 670, total protein 4.9 and albumin 2.6. RECOMMENDATION: 1. With regard to his liver function tests, they are improving suggesting this was related to medication induced liver inflammation. I would continue supportive care. 2. I have encouraged the patient to speak with Dr. Suárez or Dr. Schmidt this weekend regarding his concerns about his drainage from his port site. 3. I have encouraged the daughter to bring food from home that the patient would prefer to eat as we need to increase his oral intake in an effort to progress towards discharge. cc: Chaparrita Howe MD
--- NOTE | 2018-09-06 22:10 | Diag Imaging Result Doc PS360 ---
EXAM: CT THORAX W/O CONTRAST HISTORY: pneumonia TECHNIQUE: CT chest without contrast COMPARISON: 07/26/2018 FINDINGS: there are [id number] sized bilateral pleural effusions. The one on the right measures 3.7 cm posteriorly and inferiorly in the midline where is the one on the left measures 3.3 cm. There is a moderate-sized pericardial effusion measuring 1.4 cm anteriorly. The heart is not enlarged. No thoracic aortic aneurysm. Moderate atherosclerosis. Calcified mediastinal and hilar lymph nodes with scattered granuloma. Atelectasis and infiltrates are found in the lower lobes, left greater than right. IMPRESSION: 1.Bilateral pleural effusions with basilar atelectasis and lower lobe infiltrates slightly more pronounced than on the prior study 2.Persistent moderate-sized pericardial effusion This exam was performed using automated exposure control, adjustment of mA or kV according to patient size, and/or use of iterative reconstruction technique. Electronically signed by Bernabe Stewart 09/06/2018 10:07 PM
[2018-09-07] MEDS: HUMULIN R SUBQ SCH ×4 (05:59→20:49)
[2018-09-07] MEDS: MAXIPIME 1 GM in NS 50 ML IV SCH ×2 (06:21→18:10)
[2018-09-07] MEDS: ZYVOX 600 MG/D5W 600 MG/300 ML IVPB IV SCH ×2 (06:21→20:48)
[2018-09-07 07:47] LABS: HEMATOCRIT 30.8 % (42.0-52.0); HEMOGLOBIN 9.9 g/dL (14.0-18.0); MCH 31.8 PG (27-31); MCHC 32.1 g/dL (33-37); MPV 9.4 FL (7.4-10.4); RBC 3.11 XMIL (4.7-6.1); RDW 21.6 % (11.5-14.5); WBC 10.19 X1000 (4.8-10.8)
[2018-09-07] MEDS: COREG PO SCH ×2 (08:06→20:49)
[2018-09-07] MEDS: CENTRUM SILVER PO SCH (08:06)
[2018-09-07] MEDS: FOLIC ACID PO SCH (08:06)
[2018-09-07] MEDS: GLUCOPHAGE PO SCH ×2 (08:06→18:10)
[2018-09-07] MEDS: ICAR-C PO SCH ×2 (08:06→20:49)
[2018-09-07] MEDS: LASIX PO SCH (08:06)
[2018-09-07] MEDS: PROTONIX PO SCH ×2 (08:06→20:49)
[2018-09-07 09:37] LABS: AGAP 11; ALBUMIN 2.4 g/dL (3.5-5.0); ALKALINE PHOSPHATASE 526 U/L (32-122); BUN 15 mg/dL (8-22); CALCIUM 7.6 mg/dL (8.8-10.2); CHLORIDE 97 mmol/L (98-107); COSMO 274; CREATININE 0.9 mg/dL (0.7-1.2); ESTIMATED GFR > 60; GLUCOSE 119 mg/dL (70-104); GOT 38 U/L (10-34); GPT 63 U/L (10-44); POTASSIUM 3.4 mmol/L (3.5-5.1); SODIUM 136 mmol/L (136-145); TCO2 28 mmol/L (25-35); TOTAL BILIRUBIN 2.21 mg/dL (0.20-1.00); TOTAL PROTEIN 4.7 g/dL (6.3-8.3)
--- NOTE | 2018-09-07 09:57 | GENERAL SURGERY PROGRESS NOTE ---
DATE: 09/07/2018 SUBJECTIVE: Patient seems to be doing okay. He says he is up and ambulating. Drainage from the left lateral incision has been almost a liter. OBJECTIVE: Vital Signs: Patient is currently afebrile. His vital signs are stable. General: No acute distress. Cardiovascular: Regular rate and rhythm. Lungs: Grossly clear. Abdomen: Soft, appropriately tender. Drainage noted from most lateral trocar site. LABORATORY: Reviewed from yesterday. CT scan reviewed from yesterday. ASSESSMENT AND PLAN: An 83-year-old status post laparoscopic cholecystectomy. Postoperative state: At this time, continue current treatment. He is draining from lateral trocar site. If this persists at this high level may need to consider a HIDA scan to make sure he is not leaking anywhere. This does not look like straight bile though. He may be just decompressing the fluid from his gallbladder fossa. So again, we will just need to monitor for right now and make further recommendations if the fluid drainage persists. cc: John Schmidt MD MTDD
--- NOTE | 2018-09-07 14:05 | PROGRESS NOTE ---
DATE: 09/07/2018 SUBJECTIVE: The patient is resting comfortably. He has no complaints. OBJECTIVE: Vital Signs: Temperature 97, blood pressure 157/64, heart rate 86, respirations 20, O2 saturation 95% on room air. General: This is a chronically ill-appearing, elderly male, lying in bed in no acute distress. Heart: S1, S2 normal. Regular rate and rhythm. Lungs: Equal air entry bilaterally. No crackles. No rales. Abdomen: Positive bowel sounds. Soft. There is an ostomy on the right lower quadrant that has serous fluid in it. Extremities: No edema. No cyanosis. Neurologic: The patient is alert and oriented x3. LABS: White blood cell count 10, hemoglobin 9.9, hematocrit 30, platelets 281. Sodium 136, potassium 3.4, chloride 97, CO2 of 28, BUN 15, creatinine 0.9, glucose 119. AST 30, ALT 63, alkaline phosphatase 526, albumin 2.4. ASSESSMENT AND PLAN: 1. Status post laparoscopic cholecystectomy. The patient continues to have drainage from the surgical site. Management as per the general surgeon. 2. Pneumonia. Continue with antibiotic therapy and bronchodilator therapy. Will also add incentive spirometer. 3. Diabetes mellitus type 2. Continue on metformin. 4. Iron deficiency anemia. Continue iron supplementation. 5. Hypertension. Continue on Coreg. 6. Elevated liver function tests. Improved. 7. Severe protein calorie malnutrition. Will add Glucerna with each meal. 8. Continue with physical therapy. DISPOSITION: If the patient continues to improve, we will transition to oral antibiotics on Sunday and let the patient go home. cc: Chaparrita Howe MD
[2018-09-07 14:25] LABS: HEPATITIS PROFILE ACUTE SEE COMMENTS
[2018-09-07] MEDS: MEGACE LIQUID PO SCH ×2 (15:10→20:48)
[2018-09-07] MEDS: LOVENOX SUBQ SCH (20:49)
[2018-09-07] MEDS: NORCO-7.5 PO PRN (20:49)
[2018-09-08] MEDS: HUMULIN R SUBQ SCH ×4 (05:59→20:00)
[2018-09-08] MEDS: MAXIPIME 1 GM in NS 50 ML IV SCH ×2 (06:00→18:27)
--- NOTE | 2018-09-08 07:40 | GENERAL SURGERY PROGRESS NOTE ---
DATE: 09/08/2018 SUBJECTIVE: The patient is doing okay but he has had at least a liter or so out from the most lateral trocar site. It does not look like rama bile at this point. OBJECTIVE: Vital Signs: The patient is currently afebrile. His vital signs are stable. General Examination: No acute distress. Cardiovascular: Regular rate and rhythm. Lungs: Grossly clear. Abdomen: Soft, nontender in the right upper quadrant. Drainage noted from the most lateral trocar site. Laboratory: Reviewed from previous days. ASSESSMENT AND PLAN: An 83-year-old status post laparoscopic cholecystectomy. Postoperative state. At this time, given the continued drainage, we will get a CT scan. If there is fluid around the gallbladder fossa, may consider HIDA scan but, at this time, we will need to see all possible sources of drainage from this. We will get it with intravenous contrast. cc: John Schmidt MD
[2018-09-08 07:50] LABS: BASO# 0.01 X1000 (0.0-0.2); BASO% 0.1 % (0.0-0.8); EOS# 0.09 X1000 (0.0-0.7); HEMATOCRIT 30.5 % (42.0-52.0); HEMOGLOBIN 9.6 g/dL (14.0-18.0); IMM GRAN# 0.02 X1000 (0.0-0.04); IMM GRAN% 0.2 % (0.0-0.5); LYMPH# 6.67 X1000 (1.2-3.4); LYMPH% 77.1 % (20.5-51.1); MCH 31.1 PG (27-31); MCHC 31.5 g/dL (33-37); MCV 98.7 FL (81-99); MONO# 0.49 X1000 (0.11-0.59); MONO% 5.7 % (1.7-9.3); MPV 9.4 FL (7.4-10.4); NEUT# 1.37 X1000 (1.4-6.5); NEUT% 15.9 % (42.2-75.2); PLT 315 X1000 (130-400); RBC 3.09 XMIL (4.7-6.1); RDW 20.8 % (11.5-14.5); WBC 8.65 X1000 (4.8-10.8)
[2018-09-08 08:13] LABS: AGAP 8; BUN 13 mg/dL (8-22); CALCIUM 7.1 mg/dL (8.8-10.2); CHLORIDE 98 mmol/L (98-107); COSMO 273; CREATININE 0.8 mg/dL (0.7-1.2); ESTIMATED GFR > 60; GLUCOSE 110 mg/dL (70-104); POTASSIUM 3.4 mmol/L (3.5-5.1); SODIUM 136 mmol/L (136-145); TCO2 30 mmol/L (25-35)
[2018-09-08 08:17] LABS: ALB/GLOB RATIO 1.2; ALBUMIN 2.4 g/dL (3.5-5.0); DIRECT BILIRUBIN 1.2 mg/dL (0.00-0.20); TOTAL BILIRUBIN 1.88 mg/dL (0.20-1.00); TOTAL PROTEIN 4.4 g/dL (6.3-8.3)
--- NOTE | 2018-09-08 08:48 | Diag Imaging Result Doc PS360 ---
EXAM: CT ABD/PELVIS W/IV CONT ONLY - 09/08/2018 HISTORY: drainage from incision s/p cholecystectomy TECHNIQUE: CT abdomen/pelvis with intravenous contrast. No oral contrast administered per request of the referring provider. COMPARISON: 07/27/2018 CT abdomen/pelvis without contrast FINDINGS: There are pleural effusions and atelectasis at the bilateral lung bases, most prominent on the left. There is a small pericardial effusion. There are postsurgical changes of recent cholecystectomy. There is no discrete abscess or hematoma identified at the cholecystectomy site. There is minimal free fluid. There has been interval development of necrosis of much of the pancreas, with associated generalized enlargement of the pancreas. This is compatible with progressive changes from pancreatitis. There are no other acute changes of the liver, spleen (other than possible mild interval enlargement), adrenal glands, or kidneys identified. There is no evidence of bowel obstruction. The appendix is mildly prominent compared to prior, with fluid in the lumen and mildly thickened hope. It is possible that this may represent reaction from a small amount surrounding free fluid, which may relate to the pancreatitis. The possibility of acute appendicitis cannot be excluded, however. IMPRESSION: Status post interval cholecystectomy. No evidence of abscess or hematoma at the cholecystectomy site. Minimal free fluid. Development of necrosis and associated enlargement of much of the pancreas, compatible with progressive changes of pancreatitis. Questionable acute appendicitis. Correlation with clinical evaluation is recommended. This exam was performed using automated exposure control, adjustment of mA or kV according to patient size, and/or use of iterative reconstruction technique. Electronically signed by Chong Lucero 09/08/2018 8:46 AM
--- NOTE | 2018-09-08 09:10 | ECHO REPORT ---
ORDER DATE: 09/07/2018 INTERPRETING PHYSICIAN: Dr. Hassan REQUESTING PHYSICIAN: CLINICAL INDICATIONS: This is an 83-year-old male with pericardial effusion. This is a limited study to reassess the effusion. M-MODE MEASUREMENTS: Right ventricle: cm. Left ventricle end diastole: 3.4 cm. Left ventricle end systole: 2.7 cm. Posterior wall: 1.3 cm. Interventricular septum: 1.5 cm. Left atrium: cm. Aortic root: cm. SUMMARY OF 2-DIMENSIONAL IMAGIN. There is a small to medium size pericardial effusion. It does not appear to cause any hemodynamic compromise. 2. The left ventricle shows normal function. Ejection fraction is 65%. 3. The aortic valve looks normal. Color flow mapping is unremarkable. 4. Mitral valve looks normal. 5. Pulmonic valve looks grossly normal. 6. The right ventricle shows normal function. 7. There is no evidence of compression of neither right ventricle nor right atrium. 8. There is a prominent left pleural effusion. Clinical correlation is recommended. cc: MD Chaparrita Begum MD
[2018-09-08] MEDS: MEGACE LIQUID PO SCH ×2 (11:38→19:59)
[2018-09-08] MEDS: ICAR-C PO SCH ×2 (11:38→20:01)
[2018-09-08] MEDS: FOLIC ACID PO SCH (11:39)
[2018-09-08] MEDS: LASIX PO SCH (11:39)
[2018-09-08] MEDS: GLUCOPHAGE PO SCH (11:39)
[2018-09-08] MEDS: COREG PO SCH ×2 (11:39→19:59)
[2018-09-08] MEDS: PROTONIX PO SCH ×2 (11:39→19:59)
[2018-09-08] MEDS: CENTRUM SILVER PO SCH (11:39)
[2018-09-08] MEDS: ZYVOX 600 MG/D5W 600 MG/300 ML IVPB IV SCH ×2 (11:40→19:58)
[2018-09-08] MEDS ORDERED: KLOR-CON PO ONE ×2 (12:02→18:20)
--- NOTE | 2018-09-08 12:49 | PROGRESS NOTE ---
DATE: 09/08/2018 SUBJECTIVE: The patient is sitting up in the chair. He states that he worked with physical therapy this morning. He is tolerating his diet without any difficulty. OBJECTIVE: Vital Signs: Temperature 97.2 degrees, blood pressure 148/52, heart rate 89, respirations 20, O2 saturation 96% on 2 L nasal cannula. General: This is an elderly male sitting in a chair in no acute distress. Heart: S1, S2. Normal. Lungs: Clear to auscultation bilaterally. No wheezing. No rales. Abdomen: Positive bowel sounds. Soft, nontender, nondistended. Extremities: No edema. No cyanosis. Neurologic: The patient is alert and oriented x3. LABORATORIES: White blood cell count 8.6, hemoglobin 9.6, hematocrit 30, platelets 315,000. Sodium 136, potassium 3.4, chloride 98, CO2 30, BUN 13, creatinine 0.8. ASSESSMENT AND PLAN: 1. Status post laparoscopic cholecystectomy. The patient continues to have increased drainage from the surgical site. We will await further recommendations from General Surgery. 2. Pneumonia. Continue with antibiotic therapy. 3. Pancreatitis. Aware. 4. Diabetes mellitus type 2. Continue on sliding scale insulin. 5. Hypertension. Continue on Coreg. 6. Elevated liver function tests. Improved. 7. Severe protein calorie malnutrition. Continue with meal supplementation and Megace. 8. Continue with physical therapy. cc: Chaparrita Howe MD MTDD
[2018-09-08] MEDS: NORCO-7.5 PO PRN (14:20)
[2018-09-08 16:09] LABS: AMYLASE BODY FLUID 95 U/L
[2018-09-08] MEDS: LOVENOX SUBQ SCH (19:58)
--- NOTE | 2018-09-08 20:17 | PROGRESS NOTE ---
DATE: 09/08/2018 DATE OF ROUNDS: 09/08/2018. SUBJECTIVE: The patient states that he feels better today. He reports less abdominal pain. He continues to have right lower quadrant tenderness. The enterocutaneous fistula at the right abdominal port site continues to drain. Because of the persistent drainage, he underwent a CT scan today that reveals severe pancreatic necrosis, and possible acute appendicitis. Severe necrotizing pancreatitis was with progression of the pancreatitis compared to the previous CT. In addition, his appendix is filled with fluid and has moderately thickened hope. They could not rule out the possibility of acute appendicitis. PHYSICAL EXAMINATION: Vital Signs: His blood pressure is 139/58, pulse of 82, respirations 20, temperature of 97.4. Abdomen: On his abdominal exam, he has normoactive bowel sounds. The abdomen is soft with epigastric and right lower quadrant tenderness. There is no rebound or guarding. OBJECTIVE DATA: Reveals a hemoglobin of 9.6 with hematocrit of 30.5 and a white count of 8.65. He has 315,000 platelets. His sodium is 136, potassium 3.4, chloride 98, CO2 of 30, BUN 13, creatinine 0.8 with a glucose of 110. Calcium is 7.1, total bilirubin 1.88, direct bilirubin 1.20, AST 28, ALT 50, alkaline phosphatase 480, total protein 4.4, albumin 2.4 and lipase 73. IMPRESSION: 1. Acute necrotizing pancreatitis. 2. Elevated liver function test. 3. Enterocutaneous fistula. 4. Possible acute appendicitis. RECOMMENDATIONS: 1. With regard to the persistent drainage from the right abdominal port post cholecystectomy, I recommend that this fluid be checked for amylase and white blood cell. The fluid should also be cultured. If this is a sterile necrotizing pancreatitis, I would continue clinical monitoring. If he has evidence of infection, we will need to readdress his antibiotic therapy as well as his need for potential surgical debridement. At this time, though , he is not septic and does not appear to have an indication for acute surgical intervention. 2. His liver function tests are improving, albeit slowly. I recommend continued watchful waiting. 3. Given that the patient also has pneumonia, I would continue his current antibiotics. 4. I would continue Protonix 40 mg p.o. b.i.d. 5. Additional recommendations will be based on the results of his fluid analysis and culture. cc: MD Geri Basurto MD Katherine Takundwa, MD [facility]PITALBrandy
[2018-09-08 20:38] LABS: BODY FLUID SOURCE JP DRAIN FLUID; WBC BF 281 /cumm
[2018-09-08 20:41] LABS: MONOS 80 %; POLYS 20 %
[2018-09-09] MEDS: MAXIPIME 1 GM in NS 50 ML IV SCH (05:32)
[2018-09-09] MEDS: HUMULIN R SUBQ SCH ×4 (06:16→22:45)
[2018-09-09 07:48] LABS: AGAP 7; ALBUMIN 2.5 g/dL (3.5-5.0); ALKALINE PHOSPHATASE 460 U/L (32-122); BASO# 0.02 X1000 (0.0-0.2); BASO% 0.2 % (0.0-0.8); BUN 13 mg/dL (8-22); CALCIUM 7.9 mg/dL (8.8-10.2); CHLORIDE 101 mmol/L (98-107); COSMO 277; CREATININE 0.9 mg/dL (0.7-1.2); EOS# 0.07 X1000 (0.0-0.7); EOS% 0.7 % (0.0-10.0); ESTIMATED GFR > 60; GLUCOSE 121 mg/dL (70-104); GOT 42 U/L (10-34); GPT 48 U/L (10-44); HEMATOCRIT 31.3 % (42.0-52.0); HEMOGLOBIN 10.1 g/dL (14.0-18.0); LYMPH# 8.02 X1000 (1.2-3.4); LYMPH% 82.9 % (20.5-51.1); MAGNESIUM 1.5 mg/dL (1.5-2.7); MCH 31.9 PG (27-31); MCHC 32.3 g/dL (33-37); MCV 98.7 FL (81-99); MONO# 0.51 X1000 (0.11-0.59); MONO% 5.3 % (1.7-9.3); MPV 9.7 FL (7.4-10.4); NEUT# 1.05 X1000 (1.4-6.5); NEUT% 10.9 % (42.2-75.2); PLT 360 X1000 (130-400); POTASSIUM 4.5 mmol/L (3.5-5.1); RBC 3.17 XMIL (4.7-6.1); RDW 21.1 % (11.5-14.5); SODIUM 138 mmol/L (136-145); TCO2 30 mmol/L (25-35); TOTAL BILIRUBIN 1.54 mg/dL (0.20-1.00); TOTAL PROTEIN 5.1 g/dL (6.3-8.3); WBC 9.67 X1000 (4.8-10.8)
[2018-09-09] MEDS ORDERED: MAGNESIUM SULFATE 2 GM/S.W.I. 2 GM/50 ML IVPB IV ONE (07:54)
[2018-09-09] MEDS: ZYVOX 600 MG/D5W 600 MG/300 ML IVPB IV SCH ×2 (09:37→22:39)
[2018-09-09] MEDS: LASIX PO SCH (09:37)
[2018-09-09] MEDS: PROTONIX PO SCH ×2 (09:37→22:40)
[2018-09-09] MEDS: CENTRUM SILVER PO SCH (09:37)
[2018-09-09] MEDS: MEGACE LIQUID PO SCH ×2 (09:37→22:39)
[2018-09-09] MEDS: COREG PO SCH ×2 (09:37→22:40)
[2018-09-09] MEDS: ICAR-C PO SCH ×2 (09:37→22:40)
[2018-09-09] MEDS: FOLIC ACID PO SCH (09:38)
[2018-09-09] MEDS ORDERED: NS 0 ML ONE (10:50)
--- NOTE | 2018-09-09 12:21 | PROGRESS NOTE ---
DATE: 09/09/2018 SUBJECTIVE: The patient is resting comfortably in bed. He has no complaints at this time. He still has drainage from his surgical site. He has been up to walk with physical therapy today. He denies having any nausea. OBJECTIVE: Vital Signs: Temperature 97 degrees, blood pressure 135/62, heart rate 87, respirations 22, and O2 saturations 97% on 2 L nasal cannula. General: This is a chronically ill- appearing elderly male lying in bed in no acute distress. Heart: S1, S2 normal. Regular rate and rhythm. Lungs: Equal air entry bilaterally. No crackles. No rales. Abdomen: Positive bowel sounds. Soft. There is an ostomy pouch on the right upper quadrant with brown drainage. Extremities: No edema no cyanosis. Neurologic: The patient is alert and oriented x3. LABORATORY: White blood cell count 9.6, hemoglobin 10, hematocrit 31, and platelets 360,000. Sodium 138, potassium 4.5, chloride 101, CO2 30, BUN 13, creatinine 0.9, glucose 121, magnesium 1.5, total bilirubin 1.5, direct bilirubin 1.1, AST 42, ALT 48, alkaline phosphatase 460, and albumin 2.5. ASSESSMENT AND PLAN: 1. Status post laparoscopic cholecystectomy. Management as per the general surgeon. 2. Necrotizing pancreatitis. Continue with supportive care. Further recommendations to follow from the general surgeon. 3. Post surgical drainage. Will await further recommendations from the general surgeon. 4. Pneumonia. Continue with antibiotic therapy. We will do a chest x-ray tomorrow. 5. Diabetes mellitus type 2. Continue on sliding scale insulin and metformin. Continue on sliding scale insulin. 6. Hypertension. Continue on Coreg. 7. Elevated liver function tests. Continue to monitor for improvement. 8. Severe protein calorie malnutrition. Continue with meal supplementation and Megace. 9. Continue with physical therapy. 10. Disposition. Once the patient is medically stable, he will be discharged home with home health. cc: MD ARIES Bryan
--- NOTE | 2018-09-09 13:57 | GENERAL SURGERY PROGRESS NOTE ---
DATE: 09/09/2018 SUBJECTIVE: The patient denies abdominal pain, nausea, vomiting, fever, or chills. He is eating some food without vomiting. He has had ongoing persistent high-volume drainage from his right lateral abdominal incision. Fluid analysis revealed a normal amylase level. However, they are elevated white blood cells. CT scan shows minimal free fluid. There is a large peripancreatic fluid collection and pancreatic necrosis. There is questionable acute appendicitis. LABORATORY: White blood cell count 9.6, hemoglobin 10, hematocrit 31. Electrolytes notable for improving LFTs. ASSESSMENT AND PLAN: This is an 83-year-old male status post laparoscopic cholecystectomy. He has developed pancreatic necrosis. He has high-volume drainage. We will send some of the drainage for a bilirubin level. It is possible there is a bile leak. I think it is less likely that there is a duodenal fistula given the normal amylase level. Other possibility would be reactive fluid secondary to the pancreatic necrosis. At this point, I do not think he has acute appendicitis, but I will monitor this closely. I will continue the current care. cc: Malcolm Suárez MD
[2018-09-09 14:21] LABS: BODY FLUID SOURCE MISCELLANEOUS
[2018-09-09 14:22] LABS: MONOS 81 %; POLYS 19 %; WBC BF 259 /cumm
[2018-09-09] MEDS: LOVENOX SUBQ SCH (22:41)
[2018-09-10] MEDS: MAXIPIME 1 GM in NS 50 ML IV SCH ×2 (01:35→18:56)
--- NOTE | 2018-09-10 02:29 | PROGRESS NOTE ---
DATE: 09/09/2018 SUBJECTIVE: The patient states he feels better today. He has been much more active. He reports continued concern regarding the drainage from his right port site. PHYSICAL EXAMINATION: Vital Signs: Blood pressure is 135/62, pulse 87, respirations 22, temperature of 97.9 degrees. Abdomen: Soft and protuberant. He continues to have serosanguineous drainage from his right flank. LABORATORY DATA: Reveals a hemoglobin of 10.1 with a hematocrit of 31.3 and a white count of 9.67. He has 360,000 platelets. Sodium is 138, potassium 4.5, chloride 101, CO2 of 30, BUN 13, creatinine 0.9, glucose 121. Calcium is 7.9, magnesium 1.5, total bilirubin 1.54, direct bilirubin 1.10, AST 42, ALT 48, alkaline phosphatase 460, total protein 5.1, and albumin 2.5. Fluid analysis reveals 259 white blood cells with 19% polocytes and 81% monocytes. RECOMMENDATION: 1. The patient continues to have drainage into his ostomy bag. 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 If his drainage continues, tomorrow, we may consider octreotide injections subcutaneous to see if we are able to reduce the amount of pancreatic fluid output. 2. The patient's liver function tests continue to improve. I recommend conservative management and continued monitoring. cc: MD Chaparrita Basurto MD
[2018-09-10] MEDS: HUMULIN R SUBQ SCH ×2 (06:06→11:19)
--- NOTE | 2018-09-10 07:28 | Diag Imaging Result Doc PS360 ---
CHEST-PORTABLE - 09/10/2018 INDICATION: pneumonia COMPARISON: 09/06/2018 FINDINGS: There is a stable small left basilar pleural effusion. Arch size remains top normal. No infiltrates or edema. Pulmonary vascularity is normal. IMPRESSION: Small left pleural effusion. Electronically signed by Saeid Fonseca 09/10/2018 7:26 AM
[2018-09-10 08:39] LABS: BASO# 0.02 X1000 (0.0-0.2); BASO% 0.2 % (0.0-0.8); EOS# 0.08 X1000 (0.0-0.7); EOS% 0.8 % (0.0-10.0); HEMATOCRIT 33.7 % (42.0-52.0); HEMOGLOBIN 10.8 g/dL (14.0-18.0); LYMPH# 8.81 X1000 (1.2-3.4); LYMPH% 82.6 % (20.5-51.1); MCH 31.5 PG (27-31); MCV 98.3 FL (81-99); MONO# 0.53 X1000 (0.11-0.59); MPV 9.6 FL (7.4-10.4); NEUT# 1.22 X1000 (1.4-6.5); NEUT% 11.4 % (42.2-75.2); PLT 373 X1000 (130-400); RBC 3.43 XMIL (4.7-6.1); RDW 20.7 % (11.5-14.5); WBC 10.66 X1000 (4.8-10.8)
--- NOTE | 2018-09-10 08:48 | Diag Imaging Result Doc PS360 ---
HIDA SCAN W/O EJECT. FRACTION - 09/10/2018 INDICATION: possible bile leak TECHNIQUE: 5.4 mCi of Choletec was administered COMPARISON: CT abdomen pelvis 09/08/2018 FINDINGS: The uptake and clearance by the liver. There is a definite bile leak, with all of the excreted radiotracer accumulating in the right side of the peritoneum. There is no bowel activity. IMPRESSION: Severe biliary leak. Electronically signed by Saeid Fonseca 09/10/2018 8:45 AM
[2018-09-10 09:03] LABS: AGAP 7; ALB/GLOB RATIO 1.1; ALBUMIN 2.8 g/dL (3.5-5.0); ALKALINE PHOSPHATASE 472 U/L (32-122); BUN 11 mg/dL (8-22); CALCIUM 8.3 mg/dL (8.8-10.2); CHLORIDE 100 mmol/L (98-107); COSMO 273; CREATININE 0.9 mg/dL (0.7-1.2); ESTIMATED GFR > 60; GLUCOSE 127 mg/dL (70-104); GOT 79 U/L (10-34); GPT 79 U/L (10-44); POTASSIUM 4.4 mmol/L (3.5-5.1); SODIUM 136 mmol/L (136-145); TCO2 29 mmol/L (25-35); TOTAL BILIRUBIN 1.75 mg/dL (0.20-1.00); TOTAL PROTEIN 5.4 g/dL (6.3-8.3)
[2018-09-10 09:15] LABS: LYMPHS 74 % (21-51); MONO 6 % (1-9); SEGS 14 % (42-75)
[2018-09-10] MEDS: CENTRUM SILVER PO SCH (11:08)
[2018-09-10] MEDS: PROTONIX PO SCH (11:09)
[2018-09-10] MEDS: LASIX PO SCH (11:09)
[2018-09-10] MEDS: MEGACE LIQUID PO SCH (11:09)
[2018-09-10] MEDS: ICAR-C PO SCH (11:09)
[2018-09-10] MEDS: FOLIC ACID PO SCH (11:10)
--- NOTE | 2018-09-10 11:10 | GENERAL SURGERY PROGRESS NOTE ---
DATE: 09/10/2018 SUBJECTIVE: The patient denies significant abdominal pain, nausea, or vomiting. He ate some breakfast without trouble. OBJECTIVE: Vital signs: He is afebrile. Vital signs are stable. General: He is awake, alert, and oriented x3. No acute distress. CV: Regular rate and rhythm. Respiratory: Bilateral breath sounds. No work of breathing. Gastrointestinal: Soft, nondistended, minimal tenderness to the right lateral port site incision continues to drain bilious fluid. LABORATORY: White blood cell count 10.6, hemoglobin 10.8, hematocrit 33.7, platelet count 373,000. Electrolytes reviewed and notable for relatively unchanged LFTs. They are slightly higher than yesterday. IMAGING: A HIDA scan today confirms significant bile leak. ASSESSMENT AND PLAN: An 83-year-old male status post laparoscopic cholecystectomy with development of biliary fistula postoperatively. He also has developed severe pancreatic necrosis, although physiologically, he is stable. Dr. De La Fuente is planning endoscopic retrograde cholangiopancreatography today to further define and hopefully control the leak. He may need percutaneous drainage into the peritoneal cavity to evacuate any accumulated bile as well. He has been made nothing by mouth. He has been made aware of the findings and plan, and he is in agreement. cc: Malcolm Suárez MD
[2018-09-10] MEDS: ZYVOX 600 MG/D5W 600 MG/300 ML IVPB IV SCH (11:11)
--- NOTE | 2018-09-10 11:12 | PROGRESS NOTE ---
DATE: 09/10/2018 SUBJECTIVE: Patient was seen and examined. He is status post laparoscopic cholecystectomy on 09/03/18 for chronic calculus cholecystitis and biliary pancreatitis. The patient had been eating well, but had significant drainage from laparoscopic site. He had a HIDA scan today that showed definite bile leak with all of the excreted radiotracer accumulating in the right side of the peritoneum indicating severe biliary leak. Dr. De La Fuente was asked to see the patient for an ERCP today with possible stent placement. I have discussed the procedure, along with benefits and risks with the patient and his family and they do wish to proceed. OBJECTIVE: Vital Signs: Temperature 97.4 degrees, pulse 89, blood pressure 113 /57. General: Patient is awake, alert, no acute distress. Respiratory: Lung sounds essentially clear. Abdomen: Soft. He has drainage from the right flank incision. LABORATORY: Hematology: WBC 10.66, hemoglobin 10.8, hematocrit 33.7, MCV 98.3 , platelets 232,000, platelets 373,000. Chemistry: Sodium 136, potassium 4.4, chloride 100, CO2 29, BUN 11, creatinine 0.9, glucose 127, total bilirubin 1.75, AST 79, ALT 79, alkaline phosphatase 472. ASSESSMENT: 1. Status post cholecystectomy. 2. Biliary leak. PLAN: We will plan for ERCP today. Further plans to be made according to findings. I have discussed the procedure. Along with benefits and risks with the patient and family and they wish to proceed. I have discussed this case with Dr. De La Fuente. Dictated by RAMANDEEP Woo for Jeffery De La Fuente MD cc: RAMANDEEP Flores MD [facility]
[2018-09-10] MEDS: COREG PO SCH (11:15)
[2018-09-10] MEDS ORDERED: DIPRIVAN 1% ONE (12:03)
[2018-09-10] MEDS ORDERED: XYLOCAINE-MPF 2% ONE (12:03)
[2018-09-10] MEDS ORDERED: QUELICIN (DOSE) ONE (12:05)
[2018-09-10] MEDS ORDERED: INDOCIN ONE (12:46)
[2018-09-10] MEDS ORDERED: NEO-SYNEPHRINE ONE (13:15)
[2018-09-10] MEDS ORDERED: SODIUM CHLORIDE 0.9% 10 ML ONE (13:15)
[2018-09-10] MEDS ORDERED: REGLAN ONE (14:58)
--- NOTE | 2018-09-10 17:22 | PROGRESS NOTE ---
DATE: 09/10/2018 SUBJECTIVE: The patient is resting comfortable in bed. OBJECTIVE: Vital signs: Temperature 97.9 degrees, pulse 84, respiratory rate is 20, blood pressure 149/67, oxygen saturation is 97%. HEENT: Atraumatic, normocephalic. Cardiovascular: S1, S2. Respiratory: Has evidence of good air entry bilaterally. Abdomen: Soft. Nondistended. Extremities: No evidence of edema. Central nervous system: No obvious focal deficits noted. LABS: WBC 10.66, hematocrit is 33.7, with a platelet count of 373,000. Sodium is 136, potassium 4.4, chloride 100, bicarb 29, BUN is 11, creatinine 0.9. AST 79, ALT 79, direct bilirubin 1.1, total bilirubin 1.75. ASSESSMENT AND PLAN: 1. Status post laparoscopic cholecystectomy with severe biliary leak as confirmed by HIDA scan. ERCP was attempted today for possible control of the leak. I do not think this was successful. The plan now is to have the patient transferred to [facility] in [place]. Case discussed with Dr. Suárez. Family aware of the development. 2. Pneumonia. Continue antibiotics. 3. Diabetes mellitus. Continue blood sugar monitoring as well as sliding scale insulin. 4. Hypertension. Continue antihypertensive regimen. 5. Disposition. Patient will be transferred to [facility] for further medical care once a bed is ready. Transfer sheet has already been signed by me. cc: Joselito Leary MD
--- NOTE | 2018-09-10 17:50 | OPERATIVE NOTE ---
PROCEDURE DATE: 09/10/2018 PROCEDURE: Endoscopic retrograde cholangiopancreatography. PREOPERATIVE DIAGNOSIS: Bile leak. POSTOPERATIVE DIAGNOSIS: Bile leak. Endoscopic retrograde cholangiopancreatography attempted, normal pancreatic duct. MEDICATION USED: General anesthesia. SCOPE USED: Pentax duodenoscope. HISTORY: This 83-year-old gentleman has had a laparoscopic cholecystectomy done and has had some leak confirmed by HIDA scan. ERCP was done for stent placement. DESCRIPTION OF PROCEDURE: Informed consent obtained from the patient. The procedure, risks, benefits, alternatives were explained in layman's terms. The patient and his family members understood and agreed to proceed. Patient was brought to the endoscopy unit and was premedicated as per Anesthesia. He was intubated. After intubation to protect his airway, the duodenoscope was introduced into the posterior pharynx while he was lying in the left lateral position, the duodenoscope was introduced manually into the esophagus, through the esophagus, and it was advanced to the stomach. Stomach was insufflated. There was moderate large amount of thick gastric content noted. I was able to identify the pylorus and advance the scope through the pylorus into the duodenal bulb, and then second portion of the duodenum where the major papilla was identified. Two openings were seen at the major papilla. The inferior 1 was cannulated first where it went into the pancreatic duct. Then, the other opening was cannulated, contrast injected. It was a rather small caliber duct noted which did go towards the clips. Most likely that was placed for the cystic duct and then it made the turn towards it and it was the pancreatic duct. At this point, the cannula was withdrawn and again multiple attempts were made to cannulate the common bile duct, which was unsuccessful. After multiple attempts with different modalities since we could not cannulate the common bile duct satisfactorily, the scope was then removed. Patient tolerated procedure well. No complications noted. Patient was then transferred to the recovery area in a stable condition. IMPRESSION: Bile leak, pancreatic duct appeared to be normal and common bile duct could not be cannulated. RECOMMENDATION: I would discuss the case with Dr. Suárez, options are to transfer him to a tertiary care center where he can get either ERCP or surgical intervention that he need, or if he stays here we can try to proceed with repeat ERCP at later date if the condition and the progress allows. I have explained the findings and the plan with the patient's daughter. She was made aware of the findings and she understood. All the pertinent questions answered. cc: MD Kathy Astudillo MD Jason R. Seale, MD
[2018-09-10 19:20] VITALS: BP 147/84
--- NOTE | 2018-09-27 10:09 | DISCHARGE SUMMARY ---
ADMISSION DATE: 09/02/2018 DISCHARGE DATE: 09/10/2018 PRINCIPAL DIAGNOSIS: Cholelithiasis with chronic cholecystitis, status post laparoscopic cholecystectomy. SECONDARY DIAGNOSES: 1. Pancreatitis. 2. Pneumonia. 3. Diabetes mellitus. 4. Hypertension. 5. History of prostate cancer. 6. Hyperlipidemia. 7. Depression. DISCHARGE MEDICATIONS: Include the followin. Metformin 500 mg p.o. twice a day. 2. Lasix 40 mg p.o. daily. 3. Coreg 3.125 mg p.o. twice a day. 4. Folic acid 1 mg p.o. daily. 5. Multivitamin 1 p.o. daily. 6. Pantoprazole 40 mg p.o. twice a day. 7. Icar-C 1 p.o. twice a day. CONSULTATIONS DONE DURING THIS HOSPITAL STAY: Include: 1. Dr. Malcolm Suárez, General Surgery. 2. Dr. Kathy Egan, Gastroenterology. PROCEDURES DONE DURING THIS HOSPITAL STAY.: 1. Cholecystectomy on 09/03/2018. 2. Cholangiogram on 09/03/2018. 3. Abdominal ultrasound on 09/05/2018. 4. Chest CT on 09/06/2018. 5. Echocardiogram on 09/07/2018. 6. Abdominal and pelvis CT on 09/08/2018. 7. HIDA scan on 09/10/2018. 8. ERCP attempted on 08/22/2018. HOSPITAL COURSE: Mr. Santana Laboy is an 83-year-old male with recent history of acute pancreatitis. Noted to have possibly gallbladder sludge. The patient had a cholecystectomy done on 09/03/2018. Also had a cholangiogram as well. Postop, the patient developed a biliary leak. GI was consulted for ERCP and also to possibly help control the leak. The patient subsequently had the procedure done on 09/10/2018 but it was not feasible. During the course of the hospital stay, he was diagnosed as having pneumonia and placed on antibiotics. The patient was subsequently transferred to [facility] in [place] in light of the biliary leak. cc: Joselito Leary MD [facility] CENTERBrandy
== END 2018-09-10 18:56 | disposition short-term general hospital (02) | DRG 417 ==
LOC: ED 14:16 → EDIPHOLD 17:04 → SUATTDRO 17:04 → 3N 21:25
PROVIDERS: ATTEND Internal Medicine
PROC: EN.ERCP (2018-09-10 12:35)
CPT/HCPCS: 36430; 71010; 71020; 71045; 71046; 71250; 74177; 74300; 74328; 76700; 78226; 80048; 80053; 80074; 80076; 81001; 82150; 82550; 82948; 83690; 83735; 84100; 84145; 84443; 85025; 85027; 85610; 85730; 86038; 86039; 86850; 86900; 86901; 86920; 87040; 87070; 88304; 89051; 93005; 93010; 93308; 94761; 94799; 96360; 96361; 97116; 97162; 97530; 99285; A9270; A9537; C1751; C1769; J0330; J0690; J0692; J1100; J1650; J2020; J2370; J2405; J2765; J3010; J3475; J7030; J7120; P9016; Q9966; Q9967; S0179; XXXXX